=== PATIENT | female | born 1935 | race Caucasian/White ===

== ENCOUNTER 2016-11-29 06:26 | Inpatient (IN) | payer OTHER ==
[2016-11-26 15:44] LABS: Basophils # (auto) 0.1 uL; Eosinophils # (auto) 0.3 uL; Eosinophils % (auto) 3.5 % (0.0-7.0); Hematocrit 42.4 % (36.0-46.0); Hemoglobin 13.7 g/dL (12.2-16.2); Lymphocytes # (auto) 3.4 uL; Lymphocytes % (auto) 36.8 % (10.0-50.0); Mean Corpuscular Hemoglobin 30.3 pg (28.0-32.0); Mean Corpuscular Hgb Conc. 32.3 g/dL (32.0-36.0); Mean Corpuscular Volume 93.6 fL (80.0-100.0); Mean Platelet Volume 9.5 fL (7.4-10.4); Monocytes # (auto) 0.7 uL; Monocytes % (auto) 7.9 % (0.0-12.0); Neutrophils # (auto) 4.6 uL; Neutrophils % (auto) 50.8 % (37.0-80.0); Platelet Count (auto) 237 10^3/uL (140-450); Red Cell Distribution Width 14.2 % (11.6-16.0); White Blood Cell 9.1 10^3/uL (4.4-10.8)
[2016-11-26 15:49] LABS: BUN/Creatinine Ratio 16.5; Calcium 8.3 mg/dL (8.5-10.1); Potassium 4.1 mmol/L (3.5-5.1)
[2016-11-26 15:53] LABS: INR 0.99 (0.9-1.15); Partial Thromboplastin Time 24.9 sec (22.64-33.71); Prothrombin Time 10.2 sec (9.37-12.3)
[2016-11-26 16:05] LABS: Urine Bilirubin Negative (Negative); Urine Blood Negative /uL (Negative); Urine Color Yellow (Yellow); Urine Glucose Normal (Normal); Urine Ketone Negative (Negative); Urine Nitrite Negative (Negative); Urine RBC <1 /hpf (0 - 4); Urine Urobilinogen Normal (Negative)
[~2016-11-29] VITALS: Ht 160 cm; Wt 80.9 kg
[~2016-11-29 06:26] MED LIST: LEVO175T31 PO
[2016-11-29] MEDS ORDERED: LIDOCAINE W/ EPINEPHRINE 1 % INJ 30ML ONE (06:59)
[2016-11-29] MEDS ORDERED: METHYLENE BLUE 1% 1 ML VIAL IV ONE (06:59)
[2016-11-29] MEDS ORDERED: BUPIVACAINE 0.25% INJ 50ML VIAL ONE (06:59)
[2016-11-29] MEDS ORDERED: LIDOCAINE HCL (LOCAL ANESTH.) 0.5 % 50ML MDV IJ ONE (06:59)
[2016-11-29] MEDS ORDERED: VASOPRESSIN 20 UNIT/ML ONE (07:00)
[2016-11-29] MEDS ORDERED: ROCURONIUM 10MG/ML 10ML VIAL IV ONE (07:15)
[2016-11-29] MEDS: SODIUM CHLORIDE 0.9% 1,000 ML IV SCH ×3 (07:25→23:28)
[2016-11-29] MEDS ORDERED: ceFAZolin 1GM/50ML D5W 50 ML IV ONE ×2 (07:30→07:34)
[2016-11-29] MEDS ORDERED: MORPHINE SULF INJ 2 MG/ML SYRINGE 1ML IV PRN ×3 (07:30→09:00)
[2016-11-29] MEDS ORDERED: NITROGLYCERIN 0.4 MG SL TAB SL PRN (07:30)
[2016-11-29] MEDS ORDERED: ONDANSETRON HCL 4 MG/2 ML VIAL IV PRN (07:30)
[2016-11-29] MEDS ORDERED: ACETAMINOPHEN 500 MG TAB PO PRN (07:30)
[2016-11-29] MEDS ORDERED: MIDAZOLAM HCL 1MG/1ML-2 ML VIAL ONE (07:36)
[2016-11-29] MEDS ORDERED: MEPERIDINE HCL (50 MG/ML) 1 ML VIAL ONE (07:36)
[2016-11-29] MEDS ORDERED: fentaNYL CITRATE 100 MCG/2 ML VL ONE (07:36)
[2016-11-29] MEDS ORDERED: DEXAMETHASONE SOD PHOS 10MG/1ML VIAL INJ ONE (07:54)
[2016-11-29] MEDS ORDERED: PROPOFOL 10 MG/ML 20 ML IV ONE (07:54)
[2016-11-29] MEDS ORDERED: MIDAZOLAM HCL 1MG/1ML-2 ML VIAL IV PRN (09:00)
[2016-11-29] MEDS ORDERED: ePHEDrine SULFATE 50 MG/ML AMP IV PRN (09:00)
[2016-11-29] MEDS ORDERED: ONDANSETRON HCL 4 MG/2 ML VIAL IV ONE (09:00)
[2016-11-29] MEDS ORDERED: LABETALOL HCL 5 MG/ML 4ML SYRINGE IV PRN (09:00)
[2016-11-29] MEDS ORDERED: hydrALAZINE HCL 20 MG/ML VL IV PRN (09:00)
[2016-11-29] MEDS ORDERED: KETOROLAC TROMETH 30 MG/ML 1ML VIAL IV ONE (09:00)
[2016-11-29] MEDS ORDERED: NEOSTIGMINE 1 MG/ML INJ (10mg/10ML VIAL) ONE (09:27)
[2016-11-29] MEDS ORDERED: GLYCOPYRROLATE 0.2 MG/ML 1ML VIAL ONE (09:27)
[2016-11-29] MEDS: HYDROmorphone HCL 2 MG/ML VL IV PRN ×2 (11:05→11:46)
[2016-11-29 13:00] VITALS: BP_SYST 113; BP_SYST 115; BP_DIAS 47; BP_DIAS 58
[2016-11-29 16:32] VITALS: BP 120/50
[2016-11-29] MEDS: KETOROLAC TROMETH 30 MG/ML 1ML VIAL IV PRN (17:54)
[2016-11-29 22:00] VITALS: BP 120/61
[2016-11-30] MEDS: KETOROLAC TROMETH 30 MG/ML 1ML VIAL IV PRN (00:03)
[2016-11-30 05:04] VITALS: BP 127/70
[2016-11-30 05:57] LABS: Basophils # (auto) 0 uL; Basophils % (auto) 0.1 % (0.0-2.0); Eosinophils # (auto) 0 uL; Hematocrit 34.9 % (36.0-46.0); Hemoglobin 11.4 g/dL (12.2-16.2); Lymphocytes # (auto) 2.3 uL; Lymphocytes % (auto) 20.6 % (10.0-50.0); Mean Corpuscular Hemoglobin 30.3 pg (28.0-32.0); Mean Corpuscular Hgb Conc. 32.5 g/dL (32.0-36.0); Mean Corpuscular Volume 93.3 fL (80.0-100.0); Mean Platelet Volume 9.1 fL (7.4-10.4); Monocytes # (auto) 0.9 uL; Monocytes % (auto) 8.6 % (0.0-12.0); Neutrophils # (auto) 7.8 uL; Neutrophils % (auto) 70.7 % (37.0-80.0); Platelet Count (auto) 204 10^3/uL (140-450); Red Cell Distribution Width 13.8 % (11.6-16.0)
[2016-11-30] MEDS: SODIUM CHLORIDE 0.9% 1,000 ML IV SCH (07:22)
[2016-11-30 08:56] VITALS: BP 152/73
[2016-11-30 08:57] VITALS: BP 128/76
[2016-11-30 11:00] VITALS: BP 128/76
== END 2016-11-30 11:00 | disposition home health service (06) | DRG 743 ==
LOC: SUR 06:26 → TELE-WESTW 06:27 → WEST WING 21:59
PROVIDERS: ADMIT Obstetrics & Gynecology; ATTEND Obstetrics & Gynecology
PROC: 0UT24ZZ Resection of Bilateral Ovaries, Percutaneous Endoscopic Approach (ICD-10-PCS; 2016-11-29)
PROC: 8E0W4CZ Robotic Assisted Procedure of Trunk Region, Percutaneous Endoscopic Approach (ICD-10-PCS; 2016-11-29)
PROC: 0UT74ZZ Resection of Bilateral Fallopian Tubes, Percutaneous Endoscopic Approach (ICD-10-PCS; principal; 2016-11-29 07:45)
DX: N83.202 Unspecified ovarian cyst, left side (principal); N83.292 Other ovarian cyst, left side
CPT/HCPCS: 36415; 80048; 81001; 85025; 85049; 85610; 85730; 86850; 86900; 86901; 87086; J0690; J1100; J1885; J2250; J2704; J3490

== ENCOUNTER 2024-06-13 21:30 | Inpatient (IN) | payer MEDICARE, MEDICAID ==
[~2024-06-13] VITALS: Ht 162.6 cm; Wt 56.0 kg
[2024-06-13] MEDS: CEFEPIME 2GM/50ML NS 50 ML IV ONE (01:00)
[~2024-06-13 21:30] MED LIST changes: -LEVO175T31 PO; +LEVO175T4 PO
[2024-06-13 22:02] LABS: Basophils # (auto) 0 10 ^3/uL (0-0.2); Eosinophils # (auto) 0 10 ^3/uL (0-0.8); Eosinophils % (auto) 0.1 % (0.0-7.0); Hematocrit 40.4 % (36.0-46.0); Hemoglobin 13.6 g/dL (12.2-16.2); Lymphocytes # (auto) 0.4 10 ^3/uL (0.4-5.4); Lymphocytes % (auto) 3.6 % (10.0-50.0); Mean Corpuscular Hemoglobin 33.7 pg (28.0-32.0); Mean Corpuscular Hgb Conc. 33.7 g/dL (32.0-36.0); Mean Corpuscular Volume 100.3 fL (80.0-100.0); Monocytes # (auto) 0.3 10 ^3/uL (0-1.3); Monocytes % (auto) 2.6 % (0.0-12.0); Neutrophils # (auto) 10.8 10 ^3/uL (1.6-8.6); Neutrophils % (auto) 93.7 % (37.0-80.0); Red Blood Cells 4.03 10^6/uL (4.0-5.20); Red Cell Distribution Width 14.3 % (11.8-14.3); White Blood Cell 11.5 10^3/uL (4.4-10.8)
[2024-06-13 22:10] VITALS: PULSE 158; RESP 32; O2SAT 91
[2024-06-13] MEDS: ACETAMINOPHEN IV 1000 MG/100ML (10MG/ML) IV STA (22:31)
[2024-06-13 22:43] LABS: Chloride 109 mmol/L (98-107); Potassium 3.2 mmol/L (3.5-5.1); Sodium 141 mmol/L (136-145)
[2024-06-13 22:44] LABS: Anion Gap 14 (5-15); Calcium 8.9 mg/dL (8.7-10.4); Carbon Dioxide 18 mmol/L (20-30)
[2024-06-13 22:49] LABS: BUN/Creatinine Ratio 21.8 (10.0-20.0); Blood Urea Nitrogen 17 mg/dL (9-23); Glucose 157 mg/dL (74-106)
[2024-06-13] MEDS: VANCOMYCIN 1GM/200ML 200 ML IV ONE (23:51)
[2024-06-13] MEDS: SODIUM CHLORIDE 0.9% 1,000 ML IV ONE (23:51)
[2024-06-14 00:47] LABS: COVID19 ANTIGEN SOFIA FIA NEGATIVE (NEGATIVE); Rapid Influenza A Negative (Negative); Rapid Influenza B Negative (Negative)
[2024-06-14] MEDS: SODIUM CHLORIDE 0.9% 1,000 ML IV ONE (01:05)
[2024-06-14] MEDS ORDERED: DOCUSATE SOD 100 MG CAP PO PRN (01:30)
[2024-06-14] MEDS ORDERED: VANCOMYCIN PER PHARMACY 0 MG IV SCH (01:30)
[2024-06-14] MEDS ORDERED: ONDANSETRON HCL 4 MG/2 ML VIAL IV PRN ×2 (01:30→11:30)
[2024-06-14] MEDS: ALBUTEROL SULF 2.5 MG/0.5ML(0.5%) NEB SOLN NEB ONE (01:48)
[2024-06-14] MEDS: CEFEPIME 1GM/ 50ML 50 ML IV SCH (03:00)
[2024-06-14] MEDS ORDERED: NITROGLYCERIN 0.4 MG SL TAB SL PRN (03:30)
[2024-06-14] MEDS ORDERED: MORPHINE SULFATE INJ 2 MG/ml SYRG IV PRN (03:30)
[2024-06-14 04:20] LABS: Basophils # (auto) 0 10 ^3/uL (0-0.2); Eosinophils # (auto) 0 10 ^3/uL (0-0.8); Monocytes # (auto) 0.5 10 ^3/uL (0-1.3); Nucleated Red Blood Cells % 0.1 %; Red Cell Distribution Width 14.9 % (11.8-14.3)
[2024-06-14 04:24] LABS: Basophils % (auto) 0.3 % (0.0-2.0); Eosinophils % (auto) 0.2 % (0.0-7.0); Hematocrit 39.3 % (36.0-46.0); Hemoglobin 13.1 g/dL (12.2-16.2); Lymphocytes # (auto) 0.3 10 ^3/uL (0.4-5.4); Lymphocytes % (auto) 4.5 % (10.0-50.0); Mean Corpuscular Hemoglobin 34.5 pg (28.0-32.0); Mean Corpuscular Hgb Conc. 33.2 g/dL (32.0-36.0); Mean Corpuscular Volume 103.7 fL (80.0-100.0); Monocytes % (auto) 6.4 % (0.0-12.0); Neutrophils # (auto) 6.8 10 ^3/uL (1.6-8.6); Neutrophils % (auto) 88.6 % (37.0-80.0); Red Blood Cells 3.79 10^6/uL (4.0-5.20); White Blood Cell 7.7 10^3/uL (4.4-10.8)
[2024-06-14] MEDS: POTASSIUM CHL 20MEQ/100ML 100 ML IV SCH ×2 (04:25→11:11)
[2024-06-14 04:31] LABS: Urine Bacteria None Seen /hpf (None Seen)
[2024-06-14 04:51] LABS: Urine Amorphous Crystal MOD /hpf (None Seen); Urine Blood TRACE /uL (Negative); Urine Clarity Turbid (Clear); Urine Color Yellow (Yellow); Urine Mucus FEW (None Seen); Urine Protein, UAD 1+ (Negative); Urine Urobilinogen Normal (Negative); Urine WBC 1 /hpf (0 - 5)
[2024-06-14 04:54] LABS: Alanine Aminotransferase 108 U/L (7-40); Albumin 3.8 g/dL (3.2-4.8); Alkaline Phosphatase 58 U/L (46-116); Anion Gap 12 (5-15); Aspartate Aminotransferase 147 U/L (13-40); BUN/Creatinine Ratio 22.5 (10.0-20.0); Bilirubin, Total 0.6 mg/dL (0.2-1.0); Blood Urea Nitrogen 18 mg/dL (9-23); Calcium 8.5 mg/dL (8.7-10.4); Carbon Dioxide 18 mmol/L (20-30); Chloride 113 mmol/L (98-107); Glucose 135 mg/dL (74-106); Potassium 2.9 mmol/L (3.5-5.1); Sodium 143 mmol/L (136-145); Total Protein 7.1 g/dL (5.7-8.2)
[2024-06-14] MEDS: SOD CHL 0.45% 1,000 ML IV SCH (05:08)
[2024-06-14] MEDS: LEVOTHYROXINE SODIUM 50 MCG TAB PO SCH (06:00)
[2024-06-14] MEDS ORDERED: VANCOMYCIN 750mg/150ml 150 ML IV SCH (10:00)
[2024-06-14] MEDS: CALCIUM GLUC 1,000mg/50ml-NS 50 ML IV ONE (11:10)
[2024-06-14] MEDS: PANTOPRAZOLE 40 MG/10 ML VIAL INJ IV ONE (11:11)
[2024-06-14 11:23] LABS: Lactic Acid w/Reflex 3.5 mmol/L (0.4-2.0)
[2024-06-14 11:24] LABS: Erythrocyte Sedimentation Rate 22 mm/hr (0-20)
[2024-06-14] MEDS: AZITHROMYCIN 500MG/ 250ML 250 ML IV ONE (11:52)
[2024-06-14 12:50] VITALS: PULSE 98; RESP 24; O2SAT 95
[2024-06-14] MEDS: IPRATROPIUM BROM 0.5 MG/2.5ML INH SOL NEB SCH (12:50)
[2024-06-14] MEDS: ALBUTEROL SULF 2.5 MG/0.5ML(0.5%) NEB SOLN NEB SCH (12:50)
[2024-06-14 12:56] VITALS: PULSE 95; RESP 28; O2SAT 97
[2024-06-14 13:02] VITALS: BP 155/75; PULSE 95; RESP 24; TEMP 97.9; O2SAT 95
[2024-06-14] MEDS ORDERED: PROCHLORPERAZINE EDISYLATE 5 MG/ML 2ML VIAL IV PRN (14:00)
[2024-06-14] MEDS: AMIODARONE HCL 200 MG TAB PO SCH (14:44)
[2024-06-14] MEDS: ASPirin 81 mg TAB PO ONE (14:44)
[2024-06-14] MEDS: PIPERACILLIN-TAZOB 3.375GM 100 ML IV ONE (14:48)
[2024-06-14] MEDS: SODIUM CHLORIDE 0.9% 1,000 ML IV SCH (17:05)
[2024-06-14 18:36] VITALS: PULSE 107; RESP 18; O2SAT 97
[2024-06-14 18:44] VITALS: PULSE 104; RESP 18; O2SAT 99
[2024-06-14] MEDS: APIXABAN 2.5 MG TAB PO SCH (22:23)
[2024-06-15] VITALS (9 sets, daily range): PULSE 62–120; RESP 14–22; O2SAT 93–100
[2024-06-15 04:10] LABS: Basophils # (auto) 0 10 ^3/uL (0-0.2); Basophils % (auto) 0.1 % (0.0-2.0); Eosinophils # (auto) 0 10 ^3/uL (0-0.8); Hematocrit 35.1 % (36.0-46.0); Lymphocytes # (auto) 0.6 10 ^3/uL (0.4-5.4); Lymphocytes % (auto) 6.1 % (10.0-50.0); Mean Corpuscular Hemoglobin 34.3 pg (28.0-32.0); Mean Corpuscular Hgb Conc. 34.2 g/dL (32.0-36.0); Mean Corpuscular Volume 100.2 fL (80.0-100.0); Monocytes # (auto) 0.7 10 ^3/uL (0-1.3); Neutrophils # (auto) 8.7 10 ^3/uL (1.6-8.6); Neutrophils % (auto) 86.8 % (37.0-80.0); Red Blood Cells 3.51 10^6/uL (4.0-5.20); Red Cell Distribution Width 14.6 % (11.8-14.3); White Blood Cell 10.1 10^3/uL (4.4-10.8)
[2024-06-15 04:24] LABS: Alanine Aminotransferase 301 U/L (7-40); Albumin 3.4 g/dL (3.2-4.8); Alkaline Phosphatase 52 U/L (46-116); Anion Gap 10 (5-15); Aspartate Aminotransferase 327 U/L (13-40); BUN/Creatinine Ratio 22.4 (10.0-20.0); Blood Urea Nitrogen 17 mg/dL (9-23); Calcium 8.7 mg/dL (8.7-10.4); Carbon Dioxide 20 mmol/L (20-30); Chloride 113 mmol/L (98-107); Glucose 117 mg/dL (74-106); Potassium 4.2 mmol/L (3.5-5.1); Sodium 143 mmol/L (136-145)
[2024-06-15 04:25] LABS: Bilirubin, Total 0.6 mg/dL (0.2-1.0); Total Protein 6.4 g/dL (5.7-8.2)
[2024-06-15] MEDS: PANTOPRAZOLE 40 MG/10 ML VIAL INJ IV SCH (10:12)
[2024-06-15] MEDS: AZITHROMYCIN 500MG/ 250ML 250 ML IV SCH (10:13)
[2024-06-15] MEDS: ASPirin 81 mg TAB PO SCH (10:45)
[2024-06-15] MEDS: PIPERACILLIN-TAZOB 3.375GM 100 ML IV SCH (14:07)
[2024-06-15] MEDS ORDERED: ONDANSETRON HCL 4 MG/2 ML VIAL IV PRN (19:15)
[2024-06-16] VITALS (18 sets, daily range): BP systolic 103–158; BP diastolic 70–82; PULSE 110–159; RESP 16–77; TEMP 97.7–100.3; O2SAT 94–99
[2024-06-16] MEDS: ACETAMINOPHEN 500 MG TAB PO PRN (00:36)
[2024-06-16] MEDS: cloNIDine HCL 0.1 MG TAB PO ONE (00:38)
[2024-06-16] MEDS ORDERED: HYDR-4902 PO (04:41)
[2024-06-16] MEDS ORDERED: ASCO500T11 PO (04:41)
[2024-06-16] MEDS ORDERED: CRAN450T PO (04:41)
[2024-06-16] MEDS ORDERED: APIX5TAB4 PO (04:41)
[2024-06-16] MEDS ORDERED: [UNRECOGNIZED DRUG - CODE] XX (04:41)
[2024-06-16] MEDS ORDERED: LACT1CAP14 PO (04:41)
[2024-06-16] MEDS ORDERED: LEVO100T69 PO (04:51)
[2024-06-16] MEDS ORDERED: AMIO200T33 PO (04:51)
[2024-06-16] MEDS ORDERED: NYS15TP (04:51)
[2024-06-16 06:53] LABS: INR 1.02 (0.9-1.15); Prothrombin Time 10.8 sec (9.3-11.8)
[2024-06-16 06:56] LABS: Alanine Aminotransferase 169 U/L (7-40); Alkaline Phosphatase 49 U/L (46-116); Anion Gap 6 (5-15); Aspartate Aminotransferase 104 U/L (13-40); BUN/Creatinine Ratio 23.8 (10.0-20.0); Blood Urea Nitrogen 15 mg/dL (9-23); Calcium 8.7 mg/dL (8.7-10.4); Carbon Dioxide 22 mmol/L (20-30); Chloride 112 mmol/L (98-107); Glucose 110 mg/dL (74-106); Magnesium 1.6 mg/dL (1.6-2.6); Sodium 140 mmol/L (136-145)
[2024-06-16 06:57] LABS: Bilirubin, Total 0.8 mg/dL (0.2-1.0); Total Protein 5.7 g/dL (5.7-8.2)
[2024-06-16 06:59] LABS: Basophils # (auto) 0 10 ^3/uL (0-0.2); Basophils % (auto) 0.1 % (0.0-2.0); Eosinophils # (auto) 0 10 ^3/uL (0-0.8); Eosinophils % (auto) 0.1 % (0.0-7.0); Hematocrit 30.5 % (36.0-46.0); Hemoglobin 10.5 g/dL (12.2-16.2); Lymphocytes # (auto) 0.8 10 ^3/uL (0.4-5.4); Lymphocytes % (auto) 10.1 % (10.0-50.0); Mean Corpuscular Hemoglobin 34.2 pg (28.0-32.0); Mean Corpuscular Hgb Conc. 34.4 g/dL (32.0-36.0); Mean Corpuscular Volume 99.4 fL (80.0-100.0); Monocytes # (auto) 0.4 10 ^3/uL (0-1.3); Neutrophils # (auto) 6.3 10 ^3/uL (1.6-8.6); Neutrophils % (auto) 84.7 % (37.0-80.0); Red Blood Cells 3.06 10^6/uL (4.0-5.20); Red Cell Distribution Width 14.4 % (11.8-14.3); White Blood Cell 7.4 10^3/uL (4.4-10.8)
[2024-06-16] MEDS ORDERED: APIX2.5T PO (17:32)
[2024-06-16] MEDS ORDERED: SERT-206 PO (17:33)
[2024-06-16] MEDS: METOPROLOL TARTRATE 25 MG TAB PO SCH (22:30)
[2024-06-17] VITALS (21 sets, daily range): BP systolic 109–166; BP diastolic 65–93; PULSE 98–118; RESP 15–22; TEMP 98–99.8; O2SAT 93–100
[2024-06-17] MEDS: cloNIDine HCL 0.1 MG TAB PO ONE (05:57)
[2024-06-17 06:08] LABS: Basophils # (auto) 0 10 ^3/uL (0-0.2); Basophils % (auto) 0.1 % (0.0-2.0); Eosinophils # (auto) 0 10 ^3/uL (0-0.8); White Blood Cell 9.2 10^3/uL (4.4-10.8)
[2024-06-17 06:11] LABS: Eosinophils % (auto) 0.2 % (0.0-7.0); Hematocrit 31.9 % (36.0-46.0); Hemoglobin 11.1 g/dL (12.2-16.2); Lymphocytes % (auto) 11.3 % (10.0-50.0); Mean Corpuscular Hemoglobin 34.2 pg (28.0-32.0); Mean Corpuscular Hgb Conc. 34.7 g/dL (32.0-36.0); Mean Corpuscular Volume 98.7 fL (80.0-100.0); Monocytes # (auto) 0.5 10 ^3/uL (0-1.3); Monocytes % (auto) 4.9 % (0.0-12.0); Neutrophils # (auto) 7.7 10 ^3/uL (1.6-8.6); Neutrophils % (auto) 83.5 % (37.0-80.0); Nucleated Red Blood Cells % 0.1 %; Red Blood Cells 3.23 10^6/uL (4.0-5.20); Red Cell Distribution Width 14.3 % (11.8-14.3)
[2024-06-17 06:24] LABS: Alanine Aminotransferase 124 U/L (7-40); Albumin 3.5 g/dL (3.2-4.8); Alkaline Phosphatase 60 U/L (46-116); Anion Gap 6 (5-15); Aspartate Aminotransferase 55 U/L (13-40); BUN/Creatinine Ratio 19.3 (10.0-20.0); Bilirubin, Total 1.1 mg/dL (0.2-1.0); Blood Urea Nitrogen 11 mg/dL (9-23); Carbon Dioxide 23 mmol/L (20-30); Chloride 107 mmol/L (98-107); Glucose 101 mg/dL (74-106); Potassium 4.2 mmol/L (3.5-5.1); Sodium 136 mmol/L (136-145); Total Protein 6.3 g/dL (5.7-8.2)
[2024-06-17] MEDS ORDERED: METOPROLOL TARTRATE 50 MG TAB PO SCH (06:30)
[2024-06-17] MEDS: METOPROLOL TARTRATE 50 MG TAB PO SCH (09:52)
[2024-06-17] MEDS ORDERED: POLYETHYLENE GLYCOL 17 GM PWDR PO PRN (11:45)
[2024-06-17] MEDS: ERGOCALCIFEROL 50,000 UNIT(1.25MG) CAP PO SCH (18:59)
[2024-06-17] MEDS: SODIUM CHLORIDE 0.9% 1,000 ML IV SCH (21:56)
[2024-06-18] VITALS (16 sets, daily range): BP systolic 145–181; BP diastolic 69–95; PULSE 69–116; RESP 16–22; TEMP 97.6–99.5; O2SAT 92–99
[2024-06-18 07:23] LABS: Basophils # (auto) 0 10 ^3/uL (0-0.2); Basophils % (auto) 0.1 % (0.0-2.0); Eosinophils # (auto) 0 10 ^3/uL (0-0.8); Eosinophils % (auto) 0.3 % (0.0-7.0); Hematocrit 33.6 % (36.0-46.0); Hemoglobin 11.3 g/dL (12.2-16.2); Lymphocytes # (auto) 1.2 10 ^3/uL (0.4-5.4); Lymphocytes % (auto) 11.5 % (10.0-50.0); Mean Corpuscular Hemoglobin 33.1 pg (28.0-32.0); Mean Corpuscular Hgb Conc. 33.7 g/dL (32.0-36.0); Mean Corpuscular Volume 98.3 fL (80.0-100.0); Monocytes # (auto) 0.5 10 ^3/uL (0-1.3); Monocytes % (auto) 4.5 % (0.0-12.0); Neutrophils # (auto) 8.7 10 ^3/uL (1.6-8.6); Neutrophils % (auto) 83.6 % (37.0-80.0); Nucleated Red Blood Cells % 0.1 %; Red Blood Cells 3.42 10^6/uL (4.0-5.20); Red Cell Distribution Width 14.2 % (11.8-14.3); White Blood Cell 10.5 10^3/uL (4.4-10.8)
[2024-06-18 07:34] LABS: Alanine Aminotransferase 89 U/L (7-40); Albumin 3.4 g/dL (3.2-4.8); Alkaline Phosphatase 67 U/L (46-116); Anion Gap 7 (5-15); Aspartate Aminotransferase 42 U/L (13-40); Bilirubin, Total 1.2 mg/dL (0.2-1.0); Blood Urea Nitrogen 10 mg/dL (9-23); Calcium 9.1 mg/dL (8.7-10.4); Carbon Dioxide 25 mmol/L (20-30); Chloride 104 mmol/L (98-107); Glucose 96 mg/dL (74-106); Magnesium 1.7 mg/dL (1.6-2.6); Potassium 3.7 mmol/L (3.5-5.1); Sodium 136 mmol/L (136-145); Total Protein 6.4 g/dL (5.7-8.2)
[2024-06-18 09:14] LABS: Base Excess -0.4 mmol/L (-2.0-2.0)
[2024-06-18 09:33] LABS: Hepatitis B Core Total AB Negative (Negative)
[2024-06-18 11:31] LABS: Hepatitis A Ab IgM Negative; Hepatitis A Total Antibody Positive (Negative)
[2024-06-18 11:32] LABS: Hepatitis B Core IgM Negative; Hepatitis B Surface Antibody Negative (Negative); Hepatitis B Surface Antigen Negative (Negative)
[2024-06-18 11:35] LABS: Hepatitis C Antibody Reactive (Negative)
[2024-06-18] MEDS: GLYCOPYRROLATE 0.2 MG/ML 1ML VIAL IV SCH (14:41)
[2024-06-18] MEDS: FUROSEMIDE 40 MG/4 ML VIAL IV ONE (14:41)
[2024-06-18] MEDS: LEVALBUTEROL HCL 1.25 MG/3 ML NEB NEB SCH (18:57)
[2024-06-18] MEDS: MAGNESIUM OXIDE 400 MG TAB PO SCH (22:33)
[2024-06-18] MEDS: POTASSIUM CHL 20 Meq TABLET PO ONE (22:33)
[2024-06-19] VITALS (19 sets, daily range): BP systolic 114–160; BP diastolic 72–91; PULSE 89–126; RESP 16–24; TEMP 97.6–99.3; O2SAT 92–100
[2024-06-19 05:37] LABS: Basophils # (auto) 0 10 ^3/uL (0-0.2); Basophils % (auto) 0.2 % (0.0-2.0); Eosinophils # (auto) 0 10 ^3/uL (0-0.8); Eosinophils % (auto) 0.2 % (0.0-7.0); Hematocrit 33.2 % (36.0-46.0); Hemoglobin 11.5 g/dL (12.2-16.2); Lymphocytes % (auto) 11.3 % (10.0-50.0); Mean Corpuscular Hemoglobin 33.9 pg (28.0-32.0); Mean Corpuscular Hgb Conc. 34.5 g/dL (32.0-36.0); Mean Corpuscular Volume 98.3 fL (80.0-100.0); Monocytes # (auto) 0.5 10 ^3/uL (0-1.3); Monocytes % (auto) 5.6 % (0.0-12.0); Neutrophils # (auto) 7.2 10 ^3/uL (1.6-8.6); Neutrophils % (auto) 82.7 % (37.0-80.0); Nucleated Red Blood Cells % 0.1 %; Red Blood Cells 3.37 10^6/uL (4.0-5.20); Red Cell Distribution Width 14.3 % (11.8-14.3); White Blood Cell 8.7 10^3/uL (4.4-10.8)
[2024-06-19 05:54] LABS: Alkaline Phosphatase 71 U/L (46-116); Anion Gap 9 (5-15); Aspartate Aminotransferase 33 U/L (13-40); Calcium 8.9 mg/dL (8.7-10.4); Carbon Dioxide 27 mmol/L (20-30); Chloride 101 mmol/L (98-107); Potassium 3.5 mmol/L (3.5-5.1); Sodium 137 mmol/L (136-145)
[2024-06-19 05:55] LABS: BUN/Creatinine Ratio 17.2 (10.0-20.0); Blood Urea Nitrogen 10 mg/dL (9-23); Glucose 105 mg/dL (74-106); Magnesium 1.8 mg/dL (1.6-2.6)
[2024-06-19 05:56] LABS: Albumin 3.3 g/dL (3.2-4.8)
[2024-06-19 05:57] LABS: Bilirubin, Total 1.2 mg/dL (0.2-1.0); Total Protein 6.3 g/dL (5.7-8.2)
[2024-06-19 06:11] LABS: Alanine Aminotransferase 67 U/L (7-40)
[2024-06-19] MEDS ORDERED: MAGNESIUM SULFATE 1GM/100ML 100 ML IV SCH (08:00)
[2024-06-19] MEDS: LOSARTAN POTASSIUM 50 MG TAB PO SCH (10:00)
[2024-06-19] MEDS: FUROSEMIDE 20 MG/2 ML VIAL IV SCH (10:44)
[2024-06-19] MEDS: LABETALOL HCL 20 MG/4 ML VL IV ONE (11:55)
[2024-06-19 15:07] LABS: Base Excess 3.1 mmol/L (-2.0-2.0)
[2024-06-19] MEDS ORDERED: Jevity 1.2 Cal/Fiber 1 Liter GT SCH (18:30)
[2024-06-19] MEDS ORDERED: POLYETHYLENE GLYCOL 17 GM PWDR NG PRN (19:00)
[2024-06-19] MEDS: AMIODARONE HCL 200 MG TAB NG SCH (19:19)
[2024-06-19] MEDS: METOPROLOL TARTRATE 50 MG TAB NG SCH (21:53)
[2024-06-19] MEDS: APIXABAN 2.5 MG TAB NG SCH (21:54)
[2024-06-20] VITALS (11 sets, daily range): BP systolic 94–154; BP diastolic 46–89; PULSE 96–127; RESP 7–22; TEMP 98.1–99.7; O2SAT 50–100
[2024-06-20] MEDS: LEVOTHYROXINE SODIUM 100 MCG TAB NG SCH (05:38)
[2024-06-20] MEDS ORDERED: LEVOTHYROXINE SODIUM 50 MCG TAB NG SCH (06:00)
[2024-06-20 07:58] LABS: Alanine Aminotransferase 52 U/L (7-40); Alkaline Phosphatase 71 U/L (46-116); Anion Gap 7 (5-15); BUN/Creatinine Ratio 26.6 (10.0-20.0); Blood Urea Nitrogen 17 mg/dL (9-23); Carbon Dioxide 30 mmol/L (20-30); Chloride 101 mmol/L (98-107); Glucose 117 mg/dL (74-106); Potassium 3.1 mmol/L (3.5-5.1); Sodium 138 mmol/L (136-145)
[2024-06-20 07:59] LABS: Albumin 3.4 g/dL (3.2-4.8); Aspartate Aminotransferase 43 U/L (13-40); Total Protein 6.5 g/dL (5.7-8.2)
[2024-06-20] MEDS: MAGNESIUM OXIDE 400 MG TAB PO ONE (08:04)
[2024-06-20] MEDS: cloNIDine HCL 0.1 MG TAB PO ONE (08:05)
[2024-06-20] MEDS: IOHEXOL 350 MG/ML 100ML IJ ONE (08:05)
[2024-06-20 08:08] LABS: Hematocrit 33.2 % (36.0-46.0); Hemoglobin 11.5 g/dL (12.2-16.2); Mean Corpuscular Hemoglobin 33.8 pg (28.0-32.0); Mean Corpuscular Hgb Conc. 34.5 g/dL (32.0-36.0); Red Blood Cells 3.39 10^6/uL (4.0-5.20); Red Cell Distribution Width 14.3 % (11.8-14.3); White Blood Cell 10.8 10^3/uL (4.4-10.8)
[2024-06-20 08:11] LABS: Band Neutrophils % (manual) 0; Basophils % (manual) 0 (0.0-2.0); Blast Cells 0; Metamyelocytes % 0; Myelocytes % 0; Promyelocytes % 0; Reactive Lymphocytes 0
[2024-06-20] MEDS ORDERED: POTASSIUM CHL 20MEQ/100ML 100 ML IV SCH (10:15)
[2024-06-20 10:43] LABS: Eosinophils % (manual) 2 (0-7); Lymphocytes % (manual) 28 (10.0-50.0); Monocytes % (manual) 3 (0-12); Platelet Estimate Adequate
[2024-06-20] MEDS: LOSARTAN POTASSIUM 50 MG TAB NG SCH (12:56)
[2024-06-20] MEDS ORDERED: FUROSEMIDE 40 MG/4 ML VIAL IV ONE (13:30)
== END 2024-06-20 22:19 | DRG 871 ==
LOC: ER 21:30 → EDBD 21:30 → TELE 06-14 03:24 → TELE-WESTW 06-15 23:35 → DOU IN ICU 06-20 14:40
PROVIDERS: ADMIT Internal Medicine; ATTEND Emergency Medicine
DX: A41.9 Sepsis, unspecified organism (principal); G93.41 Metabolic encephalopathy; I21.A1 Myocardial infarction type 2; J69.0 Pneumonitis due to inhalation of food and vomit; J96.01 Acute respiratory failure with hypoxia; J18.9 Pneumonia, unspecified organism; E86.0 Dehydration; K52.9 Noninfective gastroenteritis and colitis, unspecified; F03.90 Unspecified dementia, unspecified severity, without behavioral disturbance, psychotic disturbance, mood disturbance, and anxiety; K80.20 Calculus of gallbladder without cholecystitis without obstruction; E87.6 Hypokalemia; Z20.822 Contact with and (suspected) exposure to COVID-19; I48.0 Paroxysmal atrial fibrillation; R74.01 Elevation of levels of liver transaminase levels; E03.9 Hypothyroidism, unspecified; B19.20 Unspecified viral hepatitis C without hepatic coma; Z87.01 Personal history of pneumonia (recurrent)
CPT/HCPCS: 36415; 36600; 70450; 71045; 71275; 76700; 78226; 80048; 80053; 80074; 81001; 82140; 82306; 82607; 82805; 83036; 83605; 83735; 83880; 84443; 84484; 85007; 85025; 85027; 85379; 85610; 85652; 86141; 86704; 86706; 86708; 86803; 87040; 87070; 87077; 87205; 87340; 87426; 87804; 92610; 93005; 93306; 93970; 94640; 96361; 96365; 96367; G0378; J0692; J2470; J2543; J3480